=== PATIENT | male | born 1995 | race Caucasian/White ===

== ENCOUNTER 2016-12-25 14:06 | Emergency (ER) | payer SELFPAY ==
[~2016-12-25] VITALS: Ht 180.3 cm; Wt 114.3 kg
[2016-12-25] MEDS ORDERED: BENZONATATE 100 MG CAPSULE. PO ONE (14:30)
--- NOTE | 2016-12-25 14:53 | RAD ---
Exam: PA and lateral chest radiograph History: Cough, shortness of breath, chest pain for one week. Comparison: None. Findings: Cardiomediastinal silhouette is within normal limits for size. Bilateral lung chapa are free of focal infiltrate. No pleural effusion is seen. Impression: No acute cardiopulmonary process.
--- NOTE | 2016-12-25 15:21 | ED.ADGEN ---
Past Medical History Past Medical History: No Pertinent History Past Surgical History: Other Additional Past Surgical Histo: L EYE SX Alcohol Use: None Drug Use: None Adult General Chief Complaint Chief Complaint: COUGH HPI HPI Patient is a 21 year old man, who presents to the emergency department, with complaint of cough, rhinorrhea, sore throat, nasal congestion, headache, body aches and myalgias over the past several days. 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 He states he has not taken any medication prior to coming to the ED aside from cough drops. States the chest pain is located along his lower chest, both sides, and is worse with coughing. Denies any weakness, numbness, tingling, swelling extremities, rashes, nausea or vomiting, history of DVT or PE in himself or family members, states that the pain and discomfort is constant and worse with coughing as stated no abdominal pain. No wheezing. He does not have a primary care provider. Childhood vaccinations are up-to-date. Review of Systems Review of Systems Constitutional: Denies fever or chills. [] Generalized malaise. Eyes: Denies change in visual acuity. [] HENT: Nasal congestion and sore throat. Respiratory: Cough, chest pain. Cardiovascular: Cough and chest pain, no edema. GI: Denies abdominal pain, nausea, vomiting, bloody stools or diarrhea. [] : Denies dysuria. [] Musculoskeletal: Denies back pain or joint pain. [] Integument: Denies rash. [] Neurologic: Denies focal weakness or sensory changes. [] Frontal headache. Endocrine: Denies polyuria or polydipsia. [] Lymphatic: Denies swollen glands. [] Psychiatric: Denies depression or anxiety. [] Current Medications Current Medications Current Medications Medications (Trade) Dose Ordered Sig/Kelly Start Time Stop Time Status Last Admin Dose Admin Benzonatate (Tessalon Perle) 100 mg 1X ONCE 12/25/16 14:30 12/25/16 14:31 DC 12/25/16 14:40 100 MG Naproxen (Naprosyn) 500 mg 1X ONCE 12/25/16 15:30 12/25/16 15:31 DC Allergies Allergies Allergies Coded Allergies Type Severity Reaction Last Updated Verified No Known Drug Allergies 12/25/16 No Physical Exam Physical Exam Constitutional: Well developed, well nourished, no acute distress, non-toxic appearance. [] HENT: Normocephalic, atraumatic, bilateral external ears normal, oropharynx moist, mildly erythematous with postnasal drip noted, no exudates, patient with turbinate swelling bilaterally and clear rhinorrhea. No temporal or maxillary tenderness. TMs are clear bilaterally. Eyes: PERRLA, EOMI, conjunctiva normal, no discharge. [] Neck: Normal range of motion, no tenderness, supple, no stridor. [] Cardiovascular:Heart rate regular rhythm, no murmur, S1, S2, rubs or gallops. Mildly tachycardic. [] Lungs & Thorax: Bilateral breath sounds clear to auscultation, no wheezing, rhonchi, rales. Patient with chest wall tenderness across the anterior portion of his lower chest, reproducible chest to palpation, no crepitus, no lesions identified. [] Abdomen: Bowel sounds normal, obese, soft, no tenderness, no rebound, rigidity, no guarding, no masses, no pulsatile masses. [] Skin: Warm, dry, no erythema, no rash. [] Back: No tenderness, no CVA tenderness. [] Extremities: No tenderness, no cyanosis, no clubbing, ROM intact, no edema. Negative Homans sign. [] Neurologic: Alert and oriented X 3, normal motor function, normal sensory function, no focal deficits noted. [] Psychologic: Affect normal, judgement normal, mood normal. [] Current Patient Data Vital Signs Vital Signs Date Time Temp Pulse Resp B/P (MAP) Pulse Ox O2 Delivery O2 Flow Rate FiO2 12/25/16 14:21 98.4 108 18 133/73 (93) 97 Room Air 98.4 EKG EKG EC: Sinus tachycardia, heart rate 108 beats minute, upright axis, QTC of 419, [place] 154, QRS of 80, patient with mild ST elevations noted in aVF through the lateral leads, no ST depressions, as interpreted by me. [] Radiology/Procedures Radiology/Procedures [][facility] [address] [place] [address] IMAGING REPORT Signed PATIENT: VANE GORDON ACCOUNT: [id number] : 1995 LOCATION: ER AGE: 21 SEX: M EXAM STATUS: PRE ER ORD. PHYSICIAN: JEAN DRIVER DO REASON: cough/SOB/CP X 1 WEEK PROCEDURE: CHEST PA & LATERAL Exam: PA and lateral chest radiograph History: Cough, shortness of breath, chest pain for one week. Comparison: None. Findings: Cardiomediastinal silhouette is within normal limits for size. Bilateral lung chapa are free of focal infiltrate. No pleural effusion is seen. Impression: No acute cardiopulmonary process. DICTATED and SIGNED BY: ABIODUN WOOTEN MD DATE: 12/25/16 1448 CC: JEAN DRIVER DO ~ Course & Med Decision Making Course & Med Decision Making Pertinent Labs and Imaging studies reviewed. (See chart for details) Patient's examination and history consistent with viral illness. CXR unremarkable, strep swab negative. I do nor believe there is any concerning pulmonary or cardiac etiology. Received naproxen, tesslodrake perle in the ED. HR 90's, up to mildly elevated in low 100's. Pt states he does drink coffee, denies any supplements. Concern for mild dehydration, pt tolerating PO w/o issue. Ambulatory hr up to 117, O2 98% on RA, no SOB or other complaints. Discussed w/ pt, states he would prefer to trial oral meds, requests work note for tonight until tomorrow evening as he is currently driving a load, will be able to fax note to employer for day off. Note provided, pt given clear and detailed return instructions and precautions with medication instructions and precautions, with which he voiced understanding and agreement. D/C home in stable condition w/ plan as above. Dragon Disclaimer Dragon Disclaimer This electronic medical record was generated, in whole or in part, using a voice recognition dictation system. Departure Impression: Primary Impression: Viral syndrome Disposition: HOME, SELF-CARE Condition: IMPROVED Scripts Naproxen (NAPROSYN) 500 Mg Tablet 500 MG PO BID Y for PAIN, #10 TAB Prov: JEAN DRIVER DO 12/25/16 Loratadine (LORATADINE) 10 Mg Tablet 1 TAB PO DAILY, #30 TAB 0 Refills Prov: JEAN DRIVER DO 12/25/16 Fluticasone Propionate (FLUTICASONE PROPIONATE NASAL SPRAY) 16 Gm [place].susp 2 SPRAY NS DAILY Y for Congestion, #1 INHALER 0 Refills Prov: JEAN DRIVER DO 12/25/16 Benzonatate (TESSALON PERLE) 100 Mg Capsule 100 MG PO TID Y for COUGH, #12 CAP Prov: JEAN DRIVER DO 12/25/16 JEAN DRIVER DO Dec 25, 2016 15:21
[2016-12-25] MEDS ORDERED: NAPROXEN 500 MG TABLET PO ONE (15:30)
[2016-12-25] MEDS ORDERED: FLUT16SP NS (15:40)
[2016-12-25] MEDS ORDERED: NAPR500T PO (15:40)
[2016-12-25] MEDS ORDERED: LORA10TA3 PO (15:40)
[2016-12-25] MEDS ORDERED: BENZ100C PO (15:40)
[2016-12-25 15:45] VITALS: BP 112/69
[2016-12-25 18:06] LABS: NEGATIVE OBC STREP NEG; POSITIVE OBC STREP POS
--- NOTE | 2016-12-27 12:24 | EKG ---
[facility] [address] [place] [address] Test Date: 2016-12-25 Test Time: 14:16:08 Pat Name: VANE GORDON Department: Room: Gender: M Admissions Evaluator: : 1995 Requested By: JEAN DRIVER Order Number: [id number] Reading MD: Measurements Intervals [place] Rate: 108 P: 34 VA: 154 QRS: 26 QRSD: 80 T: 26 QT: 310 QTc: 419 Interpretive Statements SINUS TACHYCARDIA NON SPECIFIC ST-T ABNORMALITY (ELEVATION) OTHERWISE NORMAL ECG RI6.01 Unconfirmed report No previous ECG available for comparison
== END 2016-12-25 16:15 | disposition home or self-care (01) ==
LOC: ER 14:06
DX: B34.9 Viral infection, unspecified (principal); R51 Headache; M79.1 Myalgia
CPT/HCPCS: 71020; 87070; 87880; 93005; 99285-25